=== PATIENT | male | born 1995 | race Caucasian/White ===

== ENCOUNTER 2021-01-05 09:07 | Emergency (ER) | payer OTHER ==
[2021-01-05 09:12] VITALS: BP 151/100
--- NOTE | 2021-01-05 09:13 | ED Physician Documentation ---
PD HPI UPPER EXT INJURY - Stated complaint Stated Complaint: RT FINGER SELLING - Chief complaint Chief Complaint: Ext Problem - History obtained from History obtained from: Patient - History of Present Illness Location: Right, Finger (Onset a few days of go of some tenderness with mild swelling around the nailbed of the right middle finger. This is continued progressing with pain and swelling. No drainage. He called [facility] nurse line yesterday and was prescribed cephalexin with a visual exam over the phone. worse today.) Where injury occurred: Work (Not aware of particular injury but does get minor injuries around nails at work.) Timing - onset: How many days ago (3) Timing - duration: Days (3) Timing - details: Gradual onset, Still present (Started cephalexin yesterday without any improvement. Has worse pain today. Has follow-up appointment tomorrow with his provider.) Improved by: No: Rest Worsened by: Moving, Palpating Associated symptoms: Swelling, Discolored (redness) Similar symptoms before: Has not had sx before Recently seen: Clinic (had telehealth assessment yesterday with Rx Keflex.) Review of Systems Constitutional: denies: Fever, Chills Nose: denies: Rhinorrhea / runny nose, Congestion Throat: denies: Sore throat Respiratory: denies: Cough GI: denies: Nausea, Vomiting Neurologic: denies: Generalized weakness PD PAST MEDICAL HISTORY - Past Medical History Past Medical History: No - Present Medications Home Medications: Ambulatory Orders Medication Instructions Recorded Confirmed HYDROcod/ACETAM 5/325 [Purcell 5/325] 1 ea PO Q6H PRN #12 tablet 01/05/21 Sulfamethox/Trimeth 800/160 1 each PO BID #10 tablet 01/05/21 [Bactrim Ds 800/160] cephALEXin [Keflex] 1 tab PO BID 01/05/21 01/05/21 - Allergies Allergies/Adverse Reactions: Allergies Allergy/AdvReac Type Severity Reaction Status Date / Time No Known Drug Allergies Allergy Verified 01/05/21 09:12 PD ED PE NORMAL - Vitals Vital signs reviewed: Yes - General General: Alert and oriented X 3, Well developed/nourished, Other (appears in discomfort from finger. Right middle finger tip very tender. ) - Derm Derm: Normal color, Warm and dry - Extremities Extremities: Other (Right middle finger tip with redness swelling and tenderness around the nailbed and distal phalanx. No red streaks no tenderness proximal to the DIP joint. No drainage noted. The does appear to be some fluid under the nail.) - Neuro Neuro: Alert and oriented X 3, No motor deficit, No sensory deficit Results - Vitals Vitals: Vital Signs - 24 hr 01/05/21 09:10 Temperature 36.3 C L Heart Rate 90 Respiratory 16 Rate Blood Pressure 151/100 H O2 Saturation 100 Oxygen O2 Source Room air - Labs Labs: Microbiology 01/05/21 10:05 Wound Culture - Preliminary Finger - Right Middle - Rads (name of study) right middle finger Radiology: Prelim report reviewed, EMP read contemporaneously, See rad report Procedures - Abscess I&D (location) subungual abscess Preparation: Lidocaine 2 % (digital block) Incision: Other (cautery unit used to burn hole in the nail with outflow of purulence. I kept nail in place for now to protect nailbed and I think it is draining adequately.) PD MEDICAL DECISION MAKING - ED course Complexity details: considered differential, d/w patient Departure - Departure Disposition: 01 Home, Self Care Clinical Impression: Subungual abscess Condition: Stable Record reviewed to determine appropriate education?: Yes Instructions: ED Fingernail Infec Follow-Up: [facility] [Provider Group] Prescriptions: Sulfamethox/Trimeth 800/160 [Bactrim Ds 800/160] 1 each PO BID #10 tablet HYDROcod/ACETAM 5/325 [Purcell 5/325] 1 ea PO Q6H PRN #12 tablet PRN Reason: Pain Comments: Soak your finger every few hours or so today and try to milk out any fluid collected under the nail. The infection does appear to be draining adequately so should be able to clear. The nail for now will act as a protection over the area. Eventually you are likely to lose the nail but it can protect the nailbed for now. On recheck tomorrow as planned, if it seems like it is not draining adequately enough, they could elect to remove the nail as well. I think it will clear the infection adequately which is the drainage hole. Continue the cephalexin antibiotic. To that add Bactrim twice daily to provide good Staph coverage. The culture should result in a couple of days and can better narrow down which antibiotic to continue. Tylenol or ibuprofen as needed for pains. To that add hydrocodone if needed for worse pain. Off work today and tomorrow until improving. Forms: Activity restrictions Discharge Date/Time: 01/05/21 10:24
[2021-01-05] MEDS ORDERED: LIDOCAINE-MPF 2% 5 ML VIAL SUBQ STA (09:25)
[2021-01-05] MEDS ORDERED: HYDROcod/ACETAM 5/325 MG TABLET PO STA (09:25)
[2021-01-05] MEDS ORDERED: SULFAMETH/TRIMETH DS 800/160 MG TABLET PO STA (09:26)
[2021-01-05] MEDS ORDERED: IBUPROFEN 600 MG TABLET PO STA (09:26)
--- NOTE | 2021-01-05 10:26 | XRAY Report ---
PROCEDURE: Finger(s) RT INDICATIONS: middle finger tip swelling and pain TECHNIQUE: AP hand, 2 views of the third digit acquired. COMPARISON: None. FINDINGS: Bones: No acute fractures or dislocations. There is deformity of the fifth metacarpal consistent wit h sequelae of an old fracture. No suspicious bony lesions. Soft tissues: There is soft tissue swelling of the third digit distally. No suspicious soft tissue c alcifications. IMPRESSION: 1. No fracture or dislocation. Reviewed by: Alan Nevarez MD on 01/05/2021 10:25 AM PDT Approved by: Alan Nevarez MD on 01/05/2021 10:25 AM PDT Station ID: [id number]
== END 2021-01-05 10:24 | disposition home or self-care (01) ==
LOC: ED 09:07
DX: L03.011 Cellulitis of right finger (principal)
CPT/HCPCS: 10140; 73140; 87070; 87181; 87205; 99283; A9270